=== PATIENT | female | born 1980 | race Caucasian/White ===

== ENCOUNTER 2023-04-13 16:56 | Observation (INO) | payer OTHER ==
[2023-04-13 17:14] VITALS: BMI 25.8
[2023-04-13] MEDS ORDERED: FAMOTIDINE 20 MG/50 ML IVPB 20 MG/50 ML MG IVPB ONE (17:56)
[2023-04-13] MEDS ORDERED: ACETAMINOPHEN 1000 MG/100 ML BAG IVPB ONE (17:56)
[2023-04-13] MEDS ORDERED: SODIUM CHLORIDE 1,000 ML IV STA (17:56)
[2023-04-13] MEDS ORDERED: ACETAMINOPHEN INJECTION 100 ML IVPB ONE (18:07)
[2023-04-13] MEDS ORDERED: FAMOTIDINE 10 MG/ML VIAL IVPB ONE (18:08)
[2023-04-13 19:01] LABS: BASO % 0.2 % (0-2.0); EOS % 0.2 % (0-4.5); HEMATOCRIT 37.2 % (32.4-45.2); HEMOGLOBIN 12.2 GM/dL (10.7-15.3); MCH 28.7 pg (25.7-33.7); MCHC 32.7 g/dl (32.0-36.0); MEAN CELL VOLUME 87.6 fl (80-96); MEAN PLT VOLUME 9.6 fl (7.5-11.1); MONO % 6.4 % (3.8-10.2); NEUT % 81.2 % (42.8-82.8); PLATELET COUNT 224 10^3/uL (134-434); RBC 4.24 M/mm3 (3.60-5.2); RDW 13.3 % (11.6-15.6); WHITE BLOOD COUNT 13.7 K/mm3 (4.0-10.0)
[2023-04-13 19:11] LABS: EPI CELLS >36 /uL (0-25.1); HYALINE CASTS 1 /uL (0-3.1); PH,URINE 6.5 (5.0-8.0); URINE APPEARANCE CLEAR; URINE BACTERIA 3322 /uL (0-1359); URINE BILIRUBIN NEGATIVE (NEGATIVE); URINE COLOR YELLOW; URINE GLUCOSE (UA) NEGATIVE (NEGATIVE); URINE KETONE NEGATIVE (NEGATIVE); URINE LEUK ESTERASE 2+ (NEGATIVE); URINE NITRITE NEGATIVE (NEGATIVE); URINE PROTEIN TRACE (NEGATIVE); URINE WBC 147 /uL (0-25.8)
[2023-04-13 19:15] LABS: INR 1.04 (0.83-1.09); PROTHROMBIN TIME (PATIENT) 12.1 SEC (9.7-13.0)
[2023-04-13 19:17] LABS: ACTIVATED PTT 20.7 SECONDS (25.2-36.5)
[2023-04-13 19:19] LABS: CHLORIDE 108 mmol/L (98-107); SODIUM 144 mmol/L (136-145)
[2023-04-13 19:22] LABS: ALBUMIN 3.4 g/dl (3.4-5.0); ANION GAP 6 MMOL/L (8-16); BLOOD UREA NITROGEN 14.7 mg/dL (7-18); CO2 30 mmol/L (21-32); GLUCOSE,RANDOM 79 mg/dL (74-106); LIPASE 238 U/L (73-393)
[2023-04-13 19:25] LABS: CREATININE 0.7 mg/dL (0.55-1.3); SGOT/AST 438 U/L (15-37); SGPT/ALT 195 U/L (13-61)
[2023-04-13 19:26] LABS: BILIRUBIN,TOTAL 0.2 mg/dL (0.2-1); TOT PROT 7.7 g/dl (6.4-8.2)
[2023-04-13 19:28] LABS: ALK PHOS 137 U/L (45-117)
[2023-04-13] MEDS ORDERED: PIPERACILLIN/TAZOB 4.5 GM 4.5 GM in DEXTROSE 5%-WATER 100 ML IVPB ONE (21:10)
[2023-04-13] MEDS ORDERED: PIPERACILLIN/TAZOB 4.5 GM 4.5 GM/100 ML BAG IVPB ONE (21:15)
[2023-04-13 22:08] LABS: URINE RBC 20.3 /uL (0-23.9)
[2023-04-14] MEDS ORDERED: ACETAMINOPHEN 1000 MG/100 ML BAG IVPB PRN (00:04)
[2023-04-14] MEDS ORDERED: ONDANSETRON 4 MG/2 ML VIAL IVPUSH PRN ×4 (00:07→13:39)
[2023-04-14] MEDS ORDERED: SODIUM CHLORIDE 1,000 ML IV SCH ×2 (00:15→13:39)
[2023-04-14] MEDS: AMPICILLIN NA/SULBACTAM NA 1.5 GM in SODIUM CHLORIDE 100 ML IVPB SCH ×2 (06:31→16:10)
[2023-04-14] MEDS ORDERED: AMPICILLIN NA/SULBACTAM NA 1.5 GM VIAL ONE (06:32)
[2023-04-14 06:44] LABS: HEMATOCRIT 36.5 % (32.4-45.2); HEMOGLOBIN 11.8 GM/dL (10.7-15.3); MCH 28.8 pg (25.7-33.7); MCHC 32.3 g/dl (32.0-36.0); MEAN PLT VOLUME 10.7 fl (7.5-11.1); PLATELET COUNT 225 10^3/uL (134-434); RBC 4.11 M/mm3 (3.60-5.2)
[2023-04-14 06:46] LABS: CALCIUM 8.6 mg/dL (8.5-10.1)
[2023-04-14 06:47] LABS: BLOOD UREA NITROGEN 10.7 mg/dL (7-18)
[2023-04-14 06:49] LABS: CREATININE 0.7 mg/dL (0.55-1.3)
[2023-04-14 06:51] LABS: BILIRUBIN,TOTAL 0.3 mg/dL (0.2-1)
[2023-04-14] MEDS ORDERED: BUPIVACAINE HCL/PF 0.25% (2.5MG/ML) 10 ML VIAL ONE (09:01)
[2023-04-14] MEDS ORDERED: MIDAZOLAM HCL 2 MG/2 ML SINGLE DOSE VIAL ONE (09:07)
[2023-04-14] MEDS ORDERED: KETAMINE HCL 500 MG/10 ML VIAL ONE (09:07)
[2023-04-14] MEDS ORDERED: PROPOFOL 40 ML ONE ×2 (09:08→10:51)
[2023-04-14] MEDS ORDERED: ROCURONIUM BROMIDE 50 MG/5 ML SYRINGE ONE (09:08)
[2023-04-14] MEDS ORDERED: HEPARIN NA (PORCINE) 5,000 UNITS/ML 1ML VIAL ONE (09:48)
[2023-04-14] MEDS ORDERED: AMPICILLIN NA/SULBACTAM NA 1.5 GM VIAL IVPB ONE (10:40)
[2023-04-14] MEDS ORDERED: INDOCYANINE GREEN 25 MG/10 ML VIAL IVPUSH ONE ×2 (10:45→10:53)
[2023-04-14] MEDS ORDERED: BUPIVACAINE HCL/PF 0.25% (2.5MG/ML) 10 ML VIAL IJ ONE ×3 (10:52)
[2023-04-14] MEDS ORDERED: SUCCINYLCHOLINE CHLORIDE 200 MG/10 ML SYRINGE ONE (10:53)
[2023-04-14] MEDS ORDERED: NEOSTIGMINE METHYLSULFATE 0.5 MG/1 ML - 10 ML MDV ONE (12:20)
[2023-04-14] MEDS ORDERED: IOHEXOL 300 MG/ML INFUS..BTL IV ONE (12:30)
[2023-04-14] MEDS ORDERED: oxyCODONE HCL 5 MG TABLET PO PRN ×2 (13:35→13:37)
[2023-04-14] MEDS: DOCUSATE SODIUM 100 MG CAPSULE (FP) PO SCH ×2 (16:09→21:34)
[2023-04-14] MEDS: ACETAMINOPHEN 1000 MG/100 ML BAG IVPB SCH ×2 (16:48→21:35)
[2023-04-15] MEDS: ACETAMINOPHEN 1000 MG/100 ML BAG IVPB SCH ×2 (02:30→09:30)
[2023-04-15 04:46] VITALS: RESP 17; TEMP 98.5
[2023-04-15] MEDS: DOCUSATE SODIUM 100 MG CAPSULE (FP) PO SCH ×2 (06:35→13:43)
[2023-04-15 07:56] LABS: BASO % 0.3 % (0-2.0); EOS % 0.3 % (0-4.5); HEMATOCRIT 31.6 % (32.4-45.2); HEMOGLOBIN 10.7 GM/dL (10.7-15.3); LYMPH % 28.2 % (8-40); MCH 29.5 pg (25.7-33.7); MCHC 33.9 g/dl (32.0-36.0); MEAN CELL VOLUME 87.2 fl (80-96); MEAN PLT VOLUME 10.4 fl (7.5-11.1); MONO % 8.4 % (3.8-10.2); NEUT % 62.8 % (42.8-82.8); PLATELET COUNT 181 10^3/uL (134-434); RBC 3.62 M/mm3 (3.60-5.2); RDW 13.2 % (11.6-15.6); WHITE BLOOD COUNT 7.8 K/mm3 (4.0-10.0)
[2023-04-15 08:08] LABS: POTASSIUM 3.6 mmol/L (3.5-5.1)
[2023-04-15 08:17] LABS: BLOOD UREA NITROGEN 6.1 mg/dL (7-18); CALCIUM 8.5 mg/dL (8.5-10.1)
[2023-04-15 08:18] LABS: ALBUMIN 2.5 g/dl (3.4-5.0)
[2023-04-15 08:19] LABS: CREATININE 0.6 mg/dL (0.55-1.3)
[2023-04-15 08:20] LABS: BILIRUBIN,DIRECT 0.1 mg/dL (0.0-0.2)
[2023-04-15 08:21] LABS: BILIRUBIN,TOTAL 0.5 mg/dL (0.2-1); TOT PROT 6.1 g/dl (6.4-8.2)
[2023-04-15 13:48] VITALS: BP 122/69; PULSE 53
[2023-04-18 03:13] LABS: FIBROSIS SCORE. 0.06 (0.00-0.21); HCV ALPHA 2 MACRO CHART 112 mg/dL (110-276); NECRO.INFLAM ACT.SCORE 0.86 (0.00-0.17); NECROINFLAM. ACTIVITY GRADE A3-Severe activity (.)
== END 2023-04-15 19:48 | disposition home or self-care (01) ==
LOC: JER 16:56 → UNDOADMOB 21:11 → JERBED 21:11 → INTOOBSV 23:19 → OBSVTOIN 23:19 → JERBED 04-14 10:15 → J8W 04-14 12:42
PROVIDERS: ADMIT Internal Medicine; ATTEND Nurse Practitioner Family
PROC: 3E0337Z Introduction of Electrolytic and Water Balance Substance into Peripheral Vein, Percutaneous Approach (ICD-10-PCS; 2023-04-14)
PROC: 0FT44ZZ Resection of Gallbladder, Percutaneous Endoscopic Approach (ICD-10-PCS; 2023-04-14)
PROC: 3E033NZ Introduction of Analgesics, Hypnotics, Sedatives into Peripheral Vein, Percutaneous Approach (ICD-10-PCS; principal; 2023-04-14 10:00)
PROC: 3E03329 Introduction of Other Anti-infective into Peripheral Vein, Percutaneous Approach (ICD-10-PCS; 2023-04-14 10:00)
DX: K81.9 Cholecystitis, unspecified (principal); D72.829 Elevated white blood cell count, unspecified; R94.5 Abnormal results of liver function studies; E78.5 Hyperlipidemia, unspecified; Z29.8 Encounter for other specified prophylactic measures
CPT/HCPCS: 36415; 71045-TC-FY; 76000-TC-FY; 76705-TC; 80048; 80053; 80061; 80076; 80307; 81003; 82172; 82977; 83010; 83690; 83883; 84460; 84484; 84703; 85025; 85027; 85610; 85730; 86705; 86708; 86850; 86900; 86901; 87086; 87340; 87517; 88304-TC; 93005; 93010; 94760; 96361; 96365; 96367; 96375; 96376; 99285-25; G0378; J1644